=== PATIENT | female | born 1975 | race Asian ===

== ENCOUNTER 2016-05-03 10:38 | Outpatient (CLI) | payer OTHER | END 2016-05-03 10:39 | disposition home or self-care (01) | DX: Z11.3 Encounter for screening for infections with a predominantly sexual mode of transmission (principal) ==

== ENCOUNTER 2016-05-24 11:01 | Outpatient (CLI) | payer OTHER | END 2016-05-24 11:02 | disposition home or self-care (01) | DX: D25.9 Leiomyoma of uterus, unspecified (principal); R10.2 Pelvic and perineal pain; N97.2 Female infertility of uterine origin ==

== ENCOUNTER 2016-05-26 06:13 | Day surgery (SDC) | payer OTHER ==
[2016-05-26] MEDS ORDERED: LACTATED RINGERS 1,000 ML IV ONE ×2 (06:43→09:17)
[2016-05-26] MEDS ORDERED: ceFAZolin 2 GM/50 ML 50 ML IV ONE (07:08)
[2016-05-26] MEDS ORDERED: ACETAMINOPHEN 1,000 MG/100 ML VIAL IV ONE (08:30)
[2016-05-26] MEDS ORDERED: DEXAMETHASONE 4 MG/ML VIAL IVP ONE (08:30)
[2016-05-26] MEDS ORDERED: HYDROmorphone 1 MG/ML SYRINGE IVP ONE (08:30)
[2016-05-26] MEDS ORDERED: KETOROLAC 30 MG/ML VIAL IVP ONE (08:30)
[2016-05-26] MEDS ORDERED: PROPOFOL 200 MG/20 ML VIAL IVP ONE (08:30)
[2016-05-26] MEDS ORDERED: ONDANSETRON 4 MG/2 ML VIAL IVP ONE (08:30)
[2016-05-26] MEDS ORDERED: LIDOCAINE-MPF 2% 5 ML VIAL IM ONE (08:30)
[2016-05-26] MEDS ORDERED: GLYCOPYRROLATE 1 MG/5 ML VIAL IVP ONE (08:30)
[2016-05-26] MEDS ORDERED: MIDAZOLAM 2 MG/2 ML VIAL IVP ONE (08:30)
[2016-05-26] MEDS ORDERED: NEOSTIGMINE 1 MG/1 ML 10 ML MDV IVP ONE (08:30)
[2016-05-26] MEDS ORDERED: ROCURONIUM 50 MG/5 ML VIAL IVP ONE (08:30)
[2016-05-26] MEDS ORDERED: BUPIVACAINE 0.25%-EPI 1:200000 PF 30 ML VIAL SUBQ ONE ×2 (09:12→09:47)
[2016-05-26] MEDS ORDERED: METHYLENE BLUE 100 MG/10 ML VIAL IVP ONE (09:12)
[2016-05-26] MEDS: fentaNYL 100 MCG/2 ML VIAL ONE ×2 (10:38→10:56)
[2016-05-26] MEDS: LACTATED RINGERS 1,000 ML IV SCH ×3 (11:15→21:12)
[2016-05-26] MEDS ORDERED: ONDANSETRON 4 MG/2 ML VIAL IVP PRN (11:30)
[2016-05-26] MEDS ORDERED: PHENOL THROAT SPRAY 177 ML MM PRN (11:38)
[2016-05-26] MEDS: IBUPROFEN 600 MG TABLET PO SCH ×2 (12:52→21:12)
[2016-05-26] MEDS: oxyCODONE 5 MG TABLET PO PRN (16:09)
[2016-05-27] MEDS: LACTATED RINGERS 1,000 ML IV SCH (03:30)
[2016-05-27] MEDS: IBUPROFEN 600 MG TABLET PO SCH (06:06)
[2016-05-27] MEDS ORDERED: DOCUSATE SODIUM 100 MG CAPSULE PO PRN (07:19)
[2016-05-27] MEDS: oxyCODONE 5 MG TABLET PO PRN (08:10)
== END 2016-05-27 11:00 | disposition home or self-care (01) ==
PROC: 3E0P3KZ Introduction of Other Diagnostic Substance into Female Reproductive, Percutaneous Approach (ICD-10-PCS; 2016-05-26)
PROC: 0UB90ZZ Excision of Uterus, Open Approach (ICD-10-PCS; principal; 2016-05-26 07:30)
DX: D25.1 Intramural leiomyoma of uterus (principal); N94.6 Dysmenorrhea, unspecified; N94.10 Unspecified dyspareunia
CPT/HCPCS: 36415; 58140; 58350; 81025; 85025; 86850; 86900; 86901; 88305; A9270; J0131; J0690; J1170; J7120

== ENCOUNTER 2016-05-31 16:45 | Outpatient (CLI) | payer OTHER ==
[2016-05-31 17:33] LABS: BASOPHILS % (AUTO) 0.6 %; EOSINOPHILS # (AUTO) 0.1 10^3/uL (0.0-0.7); HCT - HEMATOCRIT 34.2 % (37.0-47.0); LYMPHOCYTES # (AUTO) 1.9 10^3/uL (1.5-3.5); LYMPHOCYTES % (AUTO) 27.2 %; MEAN CORPUSCULAR HEMOGLOBIN 27.8 pg (27.0-31.0); MEAN CORPUSCULAR HGB CONC 32.2 g/dL (32.0-36.0); MEAN CORPUSCULAR VOLUME 86.3 fL (81.0-99.0); MEAN PLATELET VOLUME 8.4 fL (7.9-10.8); MONOCYTES # (AUTO) 0.5 10^3/uL (0.0-1.0); MONOCYTES % (AUTO) 7.7 %; NEUTROPHILS # (AUTO) 4.4 10^3/uL (1.5-6.6); NEUTROPHILS % (AUTO) 63.5 %; RED BLOOD COUNT 3.96 10^6/uL (4.20-5.40); RED CELL DISTRIBUTION WIDTH 13.1 % (12.0-15.0); UNCORRECTED WHITE BLOOD COUNT 6.9 x10^3/uL; WHITE BLOOD COUNT 6.9 x10^3/uL (4.8-10.8)
== END 2016-05-31 16:46 | disposition home or self-care (01) ==
LOC: LAB 16:45
PROVIDERS: ATTEND Physician Assistant Medical
DX: D64.9 Anemia, unspecified (principal)
CPT/HCPCS: 36415; 85025

== ENCOUNTER 2017-04-05 17:38 | Emergency (ER) | payer OTHER ==
--- NOTE | 2017-04-05 18:20 | ED Physician Documentation ---
PD HPI ABD PAIN - Stated complaint Stated Complaint: N/V/ABD PX - Chief complaint Chief Complaint: Abd Pain - History obtained from History obtained from: Patient, Family () - History of Present Illness Timing - onset: Other (She had a fruit smoothie about 3 PM and then abruptly developed diffuse abdominal pain and vomiting. She took some Advil and the pain has improved but is not gone but she declines further analgesia or nausea medicine at this juncture. She started her menses today. Only abdominal surgery in the past was a fibroidectomy without hysterectomy.) Review of Systems Constitutional: denies: Fever, Chills Throat: denies: Dental pain / toothache, Sore throat Cardiac: denies: Chest pain / pressure, Palpitations Respiratory: denies: Dyspnea, Cough PD PAST MEDICAL HISTORY - Present Medications Home Medications: Ambulatory Orders Medication Instructions Recorded Confirmed Pnv95/Iron Fum/Folic Acid 1 tab PO DAILY 05/26/16 05/26/16 [ [place]] Ibuprofen [Motrin] 600 mg PO Q8HR #21 tablet 05/27/16 Phenol [Chloraseptic] 1 sprays MM Q4HR PRN #0 bottle 05/27/16 oxyCODONE [Roxicodone] 10 mg PO Q4HR PRN #20 tablet 05/27/16 - Allergies Allergies/Adverse Reactions: Allergies Allergy/AdvReac Type Severity Reaction Status Date / Time No Known Drug Allergies Allergy Verified 05/25/16 08:21 PD ED PE NORMAL - Vitals Vital signs reviewed: Yes - General General: Alert and oriented X 3, No acute distress - Cardiac Cardiac: RRR, No murmur - Respiratory Respiratory: No respiratory distress, Clear bilaterally - Abdomen Abdomen: Other (Slightly minute diminished but not absent bowel tones, soft without surgical signs, mild left-sided abdominal tenderness.) - Neuro Neuro: Alert and oriented X 3, Normal speech - Psych Psych: Normal mood, Normal affect Results - Vitals Vitals: Vital Signs - 24 hr 04/05/17 04/05/17 17:49 18:21 Temperature 36.0 C L 36.5 C Heart Rate 64 59 L Respiratory 14 16 Rate Blood Pressure 97/67 99/67 O2 Saturation 100 100 Oxygen O2 Source Room air - Labs Labs: Laboratory Tests 04/05/17 04/05/17 04/05/17 18:15 18:15 18:34 WBC 8.3 RBC 3.82 L Hgb 10.6 L Hct 32.9 L MCV 86.0 MCH 27.6 MCHC 32.1 RDW 13.8 Plt Count 222 MPV 8.0 Neut # 7.3 H Lymph # 0.7 L Luce # 0.4 Eos # 0.0 Baso # 0.0 Absolute Nucleated RBC 0.00 Nucleated RBC % 0.0 Sodium Potassium Chloride Carbon Dioxide Anion Gap BUN Creatinine Estimated GFR (MDRD) Glucose Calcium Total Bilirubin AST ALT Alkaline Phosphatase Total Protein Albumin Globulin Albumin/Globulin Ratio Lipase Urine Color RED/BLOODY Urine Clarity CLOUDY Urine pH 6.5 Ur Specific Universal 1.025 1.025 Urine Protein 30 H Urine Glucose (UA) NEGATIVE Urine Ketones NEGATIVE Urine Occult Blood LARGE H Urine Nitrite NEGATIVE Urine Bilirubin NEGATIVE Urine Urobilinogen 0.2 (NORMAL) Ur Leukocyte Esterase NEGATIVE Urine RBC TNTC H Urine WBC 0-3 Ur Squamous Epith Cells RARE Squamous Urine Bacteria Rare Ur Microscopic Review INDICATED Urine Culture Comments NOT INDICATED Urine HCG, Qual NEGATIVE 04/05/17 18:34 WBC RBC Hgb Hct MCV MCH MCHC RDW Plt Count MPV Neut # Lymph # Luce # Eos # Baso # Absolute Nucleated RBC Nucleated RBC % Sodium 135 Potassium 3.7 Chloride 100 L Carbon Dioxide 26 Anion Gap 9.0 BUN 9 Creatinine 0.7 Estimated GFR (MDRD) 92 Glucose 115 H Calcium 8.8 Total Bilirubin 0.7 AST 18 ALT 11 Alkaline Phosphatase 37 L Total Protein 6.8 Albumin 4.0 Globulin 2.8 Albumin/Globulin Ratio 1.4 Lipase 27 Urine Color Urine Clarity Urine pH Ur Specific Universal Urine Protein Urine Glucose (UA) Urine Ketones Urine Occult Blood Urine Nitrite Urine Bilirubin Urine Urobilinogen Ur Leukocyte Esterase Urine RBC Urine WBC Ur Squamous Epith Cells Urine Bacteria Ur Microscopic Review Urine Culture Comments Urine HCG, Qual PD MEDICAL DECISION MAKING - ED course ED course: 41-year-old woman with acute diffuse abdominal pain and vomiting after eating a few fruit smoothie. She is much better on arrival here and declines pain medication. Labs were done and unremarkable except for stable chronic anemia and hematuria which can be attributed probably to her ongoing menses. On recheck at 7 PM she was pain-free and nontender. Departure - Departure Disposition: 01 Home, Self Care Clinical Impression: Abdominal pain Qualifiers: Abdominal location: generalized Qualified Code(s): R10.84 - Generalized abdominal pain Vomiting Qualifiers: Vomiting type: unspecified Vomiting Intractability: non-intractable Nausea presence: with nausea Qualified Code(s): R11.2 - Nausea with vomiting, unspecified Condition: Good Record reviewed to determine appropriate education?: Yes Instructions: Abdominal Pain Comments: Return if your symptoms recur. Otherwise follow-up with your doctor, next available appointment.
[2017-04-05 18:25] VITALS: BP 99/67
[2017-04-05 18:34] LABS: BILIRUBIN,URINE NEGATIVE (NEGATIVE); PH,URINE 6.5 PH (5.0-7.5)
[2017-04-05 18:36] LABS: UA w/ MICROSCOPIC CHARGE YES
[2017-04-05 18:37] LABS: UR CULTURE IF IND NOT INDICATED; WBC,URINE 0-3 /HPF (0-5)
[2017-04-05 18:44] LABS: BASOPHILS % (AUTO) 0.3 %; EOSINOPHILS % (AUTO) 0.1 %; HCT - HEMATOCRIT 32.9 % (37.0-47.0); HGB - HEMOGLOBIN 10.6 g/dL (12.0-16.0); LYMPHOCYTES # (AUTO) 0.7 10^3/uL (1.5-3.5); LYMPHOCYTES % (AUTO) 8.1 %; MEAN CORPUSCULAR HEMOGLOBIN 27.6 pg (27.0-31.0); MEAN CORPUSCULAR HGB CONC 32.1 g/dL (32.0-36.0); MONOCYTES # (AUTO) 0.4 10^3/uL (0.0-1.0); MONOCYTES % (AUTO) 4.4 %; NEUTROPHILS # (AUTO) 7.3 10^3/uL (1.5-6.6); NEUTROPHILS % (AUTO) 87.1 %; RED BLOOD COUNT 3.82 10^6/uL (4.20-5.40); RED CELL DISTRIBUTION WIDTH 13.8 % (12.0-15.0); UNCORRECTED WHITE BLOOD COUNT 8.3 x10^3/uL; WHITE BLOOD COUNT 8.3 x10^3/uL (4.8-10.8)
[2017-04-05 18:52] LABS: HCG UR QUAL NEGATIVE
[2017-04-05 18:58] LABS: ALBUMIN/GLOBULIN RATIO 1.4 (1.0-2.2); BILIRUBIN,TOTAL 0.7 mg/dL (0.2-1.0); CALCIUM 8.8 mg/dL (8.5-10.3); CREATININE 0.7 mg/dL (0.4-1.0); POTASSIUM 3.7 mmol/L (3.5-5.0); TOTAL PROTEIN 6.8 g/dL (6.7-8.2)
== END 2017-04-05 19:15 | disposition home or self-care (01) ==
LOC: ED 17:38
DX: R11.2 Nausea with vomiting, unspecified (principal); R10.84 Generalized abdominal pain
CPT/HCPCS: 36415; 80053; 81001; 81003; 81025; 83690; 85025; 87086; 99283